=== PATIENT | female | born 1990 ===

== ENCOUNTER 2020-05-02 17:14 | Emergency (ER) | payer SELFPAY ==
--- NOTE | 2020-05-02 17:56 | NUR ---
NO ANSWER FROM [facility]
--- NOTE | 2020-05-02 18:06 | NUR ---
NO ANSWER FROM [facility]
--- NOTE | 2020-05-02 18:24 | NUR ---
NO ANSWER FROM [facility]
== END 2020-05-02 18:32 | disposition left against medical advice (07) ==
LOC: ED 18:30
DX: M79.643 Pain in unspecified hand (principal); Z53.21 Procedure and treatment not carried out due to patient leaving prior to being seen by health care provider